=== PATIENT | male | born 1970 | race Caucasian/White ===

== ENCOUNTER → 2017-11-05 | Outpatient (CLI) | payer BC ==
[~2017-11-05] VITALS: Ht 182.9 cm; Wt 134.6 kg
[~2017-11-05] MED LIST: ASCA500 PO; ASPI1TAB83 PO; INSDGI SC; LISI-729 PO; MAGN500T15 PO; METF-384 PO
[2017-11-05 13:38] VITALS: BP 125/87; PULSE 90; Ht 182.9 cm; Wt 134.6 kg
== END | disposition home or self-care (01) ==
LOC: C.NEUR 12:51
PROVIDERS: ATTEND Internal Medicine Pulmonary Disease
DX: R06.83 Snoring (principal); R06.81 Apnea, not elsewhere classified; R53.81 Other malaise; R53.83 Other fatigue

== ENCOUNTER → 2017-11-18 | Outpatient (CLI) | payer BC ==
--- NOTE | 2017-11-19 04:12 | SPLIT NIGHT TECHNICIAN REPORT ---
[facility] Split Night Polysomnogram - Water Filterer Report Study date: 11/18/2017 Referring Physician: Jey Gayle M.D. Name: NUSRAT CAZARES Water Filterer: DALE Puentes. Date of : 1970 Height: 47 years, Height 6' 0" Sex: Male Weight: 296 lbs Age: 47 Neck Circum: 20.5 in BMI: Medications: 40.14 ASPIRIN 325 MG, ATORVASTATIN 40 MG, BASAGLAR KWIKPEN 100 UNIT/ML, LISINOPRIL 5 MG, METFORMIN 1000 MG Patient History 47 yr-old male here for a baseline study. He has a history of daytime sleepiness, loud snoring, and witnessed apneas. His Ingalls scale is 8. The test was started on room air. ETCO2 testing was not utilized during this study. Room 1 He requested to get up at 3:30 am for work. Parameters Monitored NPSG: E1-M2, E2-M1, Fp1-M2, Fp2-M1, F3-M2, F4-M2, F4-M1, C3-M2, C4-M2, C4-M1, O1-M2, O2-M2, O2-M1, T3-M2, T4-M1, P3-M2, P4-M1, CHIN1, CHIN2, HR, EKG, Legs, PFLOW, SNOR, FLOW, CFLOW, Tidal Volume, THOR, ABDO, SpO2, PLTH, CPRESS, ETCO2 Wave, ETCO2, pH SLEEP SUMMARY DATA DIAGNOSTIC TREATMENT Lights Out: 8:28:13 PM 10:59:13 PM Lights On: 10:45:13 PM 3:29:13 AM Total Recording Time (TRT): 137.0 min. 270.0 min. Total Sleep Time (TST): 81.5 min. 218.5 min. NREM Time: 81.5 min. 164.5 min. REM Time: 0.0 min. 54.0 min. Sleep Period Time (SPT): 118.5 min. 251.5 min. Sleep Efficiency (SE): 59 % 81 % Sleep Latency: 18.5 min. 18.5 min. Arousal Index: 19.9 11.3 PAP Treatment Levels: 4, 6, 8, 10, 12, 14 * Optimal Pressure(s) SLEEP STAGING DATA DIAGNOSTIC TREATMENT Duration (min) TST % Duration (min) TST % Stage Wake: 55.5 min. -- 51.5 min. -- WASO: 37.0 min. -- 33.0 min. -- NREM: 81.5 min. 100 % 164.5 min. 75 % Stage N1: 32.0 min. 39 % 25.5 min. 12 % Stage N2: 49.5 min. 61 % 124.5 min. 57 % Stage N3: 0.0 min. 0 % 14.5 min. 7 % REM: 0.0 min. 0 % 54.0 min. 25 % POSITIONAL DATA Event Count Index Event Count Index Supine: N/A N/A 43 68.1 Supine NREM: N/A N/A 43 68.1 Supine REM: N/A N/A N/A N/A Non-Supine: 139 101.6 67 20.8 Non-Supine NREM: 139 101.6 63 28.7 Non-Supine REM: N/A N/A 4 2.2 AROUSAL SUMMARY DATA: Event Count Index Event Count Index Apnea Arousals: 9 28.0 4 7.7 Hypopnea Arousals: 10 7.4 10 2.7 Snore Arousals: 2 1.5 4 1.1 PLM Arousals: 3 2.2 8 2.2 Non-Specific Arousals: 3 2.2 9 2.5 Total Arousals: 27 19.9 41 11.3 MYOCLONUS (PLM) Event Count Index Event Count Index PLM: 23 16.9 302 82.9 PLM AROUSAL: 3 2.2 8 2.2 PLM W/O AROUSAL 23 16.9 294 80.7 PLM W/RESP EVENT 5 0.0 27 0.0 MYOCLONUS (PLM) Event Count Index Event Count Index LM: 1 67.0 54 14.8 LM AROUSAL: 1 0.7 1 0.3 LM W/O AROUSAL LM W/RESP EVENT LM NON SPECIFIC 51 37.5 297 81.6 HEART RATE DATA DIAGNOSTIC TREATMENT Sleep (bpm): 85 74 REM (bpm): N/A 95 NREM (bpm): 92 93 Tachycardia Count: 0 0 Tachycardia Duration: 0.00 0 Bradycardia Count: 0 0 Bradycardia Duration: 0.00 0 DIAGNOSTIC PORTION TREATMENT PORTION RESPIRATORY DATA Event Count Index Event Count Index AHI: -- 101.6 -- 28.8 RDI: -- 102.3 -- 30 Obstructive Apnea: 37 27.2 0 0.0 Central Apnea: 1 0.7 28 7.7 Mixed Apnea: 0 0.0 0 0.0 Hypopnea: 100 73.6 77 21.1 RERA: 1 0.7 5 1.4 Total Apneas: 38 28.0 28 7.7 RESPIRATORY DATA REM NREM SLEEP REM NREM SLEEP Supine Position: Obstructive Apneas: N/A N/A N/A N/A 0 0 Central Apneas: N/A N/A N/A N/A 25 25 Mixed Apneas: N/A N/A N/A N/A 0 0 Hypopneas: N/A N/A N/A N/A 17 17 RERA N/A N/A N/A N/A 1 1 Total Supine Events: N/A N/A N/A N/A 43 43 Supine AHI: N/A N/A N/A N/A 68.1 68.1 Supine RDI: N/A N/A N/A N/A 69.7 69.7 REM NREM SLEEP REM NREM SLEEP Non-Supine Position: Obstructive Apneas: N/A 37 37 0 0 0 Central Apneas: N/A 1 1 2 1 3 Mixed Apneas: N/A 0 0 0 0 0 Hypopneas: N/A 100 100 0 60 60 RERA N/A 1 1 2 2 4 Total Supine Events: N/A 139 139 4 63 67 Supine AHI: N/A 101.6 101.6 2.2 28.7 20.8 Supine RDI: N/A 102.3 102.3 4.4 29.6 22.1 OXYGEN DESTAURATION DATA: Event Count Index Event Count Index REM Desaturations: N/A N/A 4 4.4 NREM Desaturations: 149 109.7 115 41.9 SNORE DATA DIAGNOSTIC TREATMENT Snore Time: 17.6 11:17:43 PM Snore TST%: 9 14 Snore Arousal Count: 2 4 Snore Arousal Index: 1.5 1.1 Desaturation Event Summary: Minimum %SpO2 Event Count Mean/Min/Max Duration(sec.) Desaturation Index % Time In Bed > 90 335 17.2 / 5.3 / 60.0 58.8 84.0 86 - 90 9 12.9 / 8.0 / 16.0 8.8 15.2 81 - 85 0 N/A 0.0 0.8 76 - 80 0 N/A 0.0 0.0 71 - 75 0 N/A 0.0 0.0 66 - 70 0 N/A 0.0 0.0 61 - 65 0 N/A 0.0 0.0 56 - 60 0 N/A 0.0 0.0 51 - 55 0 N/A 0.0 0.0 < 50 0 N/A 0.0 0.0 OXYGEN SATURATION DATA DIAGNOSTIC TREATMENT SpO2 Mean Sleep: 92 % 93 % SpO2 Mean REM: N/A % 95 % SpO2 Mean NREM: 92 % 93 % SpO2 Minimum Sleep: 82 % 84 % SpO2 Minimum REM: N/A % 90 % SpO2 Minimum NREM: 82 % 84 % Time Below 90% (TST): 21.2 7.0 Time Below 88% (TST): 7.3 1.1 Total REM NREM Awake <50% 0.0 min. 0.0 min. 0.0 min. 0.0 min. 51 - 60% 0.0 min. 0.0 min. 0.0 min. 0.0 min. 61 - 70% 0.0 min. 0.0 min. 0.0 min. 0.0 min. 71 - 80% 0.0 min. 0.0 min. 0.0 min. 0.0 min. 81 - 90% 64.9 min. 0.3 min. 45.0 min. 19.6 min. 91 - 100% 341.9 min. 53.7 min. 201.0 min. 87.2 min. Average 93 95 92 93 Minimum SpO2 82 90 82 82 Desaturation Event Index 49.4 4.4 64.4 38.7 # Desat. Events below 89% 137 N/A 121 16 Time(%) with Saturation below 89% 4.5 0.0 3.8 0.7 Time(min.) with Saturation below 89% 18.3 0.0 15.6 2.7 Recording Water Filterer Comments: Mr. Cazares slept in the right, left, and supine positions. No cardiac arrhythmias were noted. PLMs were noted when respiratory events were at a minimum. No bruxism noted. Snoring was noted and scored as a 3-4 on a scale of 1 through 5. (0=no snoring, 5=snoring loud enough to be heard through a closed door or down the [place] way) At 10:56 pm, he met specific Split-Night criteria during the diagnostic portion of this study. CPAP was initiated at +4 CMH2O and up-titrated to a level of +14 CMH2O, Cflex 2. He did have some central apneas; however, they mostly seemed to occur in stage one sleep after arousals. A Simplus full face mask size medium from [employer] was used during titration. He did not wake up to use the restroom during the night. Mr. Cazares stated that he slept a little better than usual. He requested to get up at 3:30 am for work. The final report will be interpreted and signed by a sleep physician. The completed physician report will then be placed in the patient medical record. Therapy Event: Therapy (cm H20) 0 4 6 8 10 12 14 Total Time at Pressure (min.) 137.0 36.1 16.2 21.4 61.2 62.6 72.5 TST at Pressure (min.) 81.5 8.1 16.2 21.4 45.2 61.6 66.0 # Periods 1 1 1 1 1 1 1 Sleep Onset (min.) 18.5 18.5 0.0 0.0 0.0 0.0 0.0 REM Onset (min.) N/A N/A N/A N/A 6.8 46.6 35.0 Sleep Efficiency % 59 22 100 100 73 98 91 Wakefulness (%) 40.5 77.5 0.0 0.0 26.1 1.6 9.0 Wakefulness (min.) 55.5 28.0 0.0 0.0 16.0 1.0 6.5 NREM 1 (%) 23.4 22.5 11.6 0.0 11.4 7.2 5.5 NREM 1 (min.) 32.0 8.1 1.9 0.0 7.0 4.5 4.0 NREM 2 (%) 36.1 0.0 88.4 55.6 28.9 74.4 46.9 NREM 2 (min.) 49.5 0.0 14.3 11.9 17.7 46.6 34.0 NREM 3 (%) 0.0 0.0 0.0 44.4 0.0 4.8 2.8 NREM 3 (min.) 0.0 0.0 0.0 9.5 0.0 3.0 2.0 REM (%) 0.0 0.0 0.0 0.0 33.5 12.0 35.9 REM (min.) 0.0 0.0 0.0 0.0 20.5 7.5 26.0 # Arousals 27 8 4 0 14 9 6 Arousal Index 19.9 59.2 14.8 0.0 18.6 8.8 5.5 # Snore 564 34 194 252 225 97 42 Snore Index 415.2 251.4 717.6 706.7 298.6 94.5 38.2 AHI 101.6 66.6 85.1 33.7 37.2 15.6 15.5 AHI Supine N/A N/A N/A N/A 102.9 79.9 44.2 AHI Non-Supine 101.6 66.6 85.1 33.7 17.3 6.7 3.8 NREM AHI 101.6 66.6 85.1 33.7 68.0 17.8 22.5 REM AHI N/A N/A N/A N/A 0.0 0.0 4.6 RDI 102.3 74.0 85.1 36.5 39.8 16.6 15.5 # Obstructive 37 0 0 0 0 0 0 # Central Ap 1 0 0 0 11 5 12 # Mixed 0 0 0 0 0 0 0 # Hypopneas 100 9 23 12 17 11 5 RERAS 1 1 0 1 2 1 0 Total Respiratory Events 139 10 23 13 30 17 17 Time Below SpO2 89.00% (min.) 12.9 0.1 0.0 0.0 2.5 0.1 0.0 Mean NREM SpO2 (%) 92 92 93 94 92 92 94 Mean REM SpO2 (%) N/A N/A N/A N/A 95 93 96 Mean Sleep SpO2 (%) 92 92 93 94 93 92 95 Min NREM SpO2 (%) 82 88 88 91 84 88 91 Min REM SpO2 (%) N/A N/A N/A N/A 92 90 92 Position Supine (min.) 0.0 0.0 0.0 0.0 10.5 7.5 19.0 Position Non-supine (min.) 81.5 8.1 16.2 21.4 34.7 54.1 47.0 LM Index Sleep 83.9 125.7 155.3 140.2 74.3 145.2 38.2 LM Index NREM 83.9 125.7 155.3 140.2 68.0 152.1 33.0 LM Index REM N/A N/A N/A N/A 82.0 96.0 46.2 Mean Heart Rate (bpm) 85 81 78 77 77 71 71 Min Heart Rate (bpm) 72 74 70 69 66 61 59 CPAP REPORT Therapy Detail Time / Page # Comment CPAP 4 cm H2O Full Face Mask Flex Pressure Relief Humidifier on 10:56:28 PM / pg. 355 HE HAD A TOTAL RECORDING TIME OF OVER 2 HOURS AND HIS AHI WAS ABOVE 40 CPAP 6 cm H2O Full Face Mask Flex Pressure Relief Humidifier on 11:35:20 PM / pg. 433 INCREASED FOR HYPOPNEAS CPAP 8 cm H2O Full Face Mask Flex Pressure Relief Humidifier on 11:51:33 PM / pg. 465 INCREASED FOR HYPOPNEAS CPAP 10 cm H2O Full Face Mask Flex Pressure Relief Humidifier on 12:12:57 AM / pg. 508 INCREASED FOR MORE HYPOPNEAS CPAP 12 cm H2O Full Face Mask Flex Pressure Relief Humidifier on 1:14:10 AM / pg. 630 INCREASED FOR HYPOPNEAS AND RERAS CPAP 14 cm H2O Full Face Mask Flex Pressure Relief Humidifier on 2:16:43 AM / pg. 756 INCREASED FOR HYPOPNEAS WHILE SUPINE
--- NOTE | 2017-11-20 16:56 | POLYSOMNOGRAPH REPORT ---
CLINICAL DATA: A 47-year-old male with BMI of 40.14 referred by myself and Dr. Villalobos for evaluation of sleep apnea with loud snoring, daytime sleepiness and witnessed apneic episodes. This was a split night study. SLEEP ARCHITECTURE: For the diagnostic portion of the study, sleep period time was 118.5 minutes. Total sleep time was 81.5 minutes, all non-REM sleep. Sleep efficiency was 59%. Sleep latency was 18.5 minutes. Sleep consisted of stage N1 39% and stage N2 61%. For the treatment portion of the study, sleep period time was 251.5 minutes. Total sleep time was 218.5 minutes divided between 164.5 minutes of non-REM sleep and 54 minutes of REM sleep. Sleep latency was 18.5 minutes. Sleep efficiency was 81%. Sleep consisted of stage N1 12%, stage N2 57%, stage N3 7%, and REM 25%. AROUSAL DATA: Prior to treatment, 27 arousals were recorded for an index of 19.9 per hour. During treatment, 41 arousals were recorded for an index of 11.3 per hour. PLM DATA: Prior to treatment, 51 limb movements were noted for an index of 37.5 per hour. During treatment, 297 limb movements were noted for an index of 81.5 per hour. RESPIRATORY DATA: Very severe sleep apnea was seen prior to treatment with an AHI of 101.6. There were 37 obstructive and 1 central apneic episode. There were 100 hypopneic episodes. The average AHI during treatment was 28.8. There were 28 central apneic episodes and 77 hypopneic episodes. OXIMETRY DATA: Nocturnal hypoxemia was seen prior to treatment. Oxygen john was 82% prior to treatment during non-REM sleep. Mean saturation with treatment was 93%. EKG: Heart rates ranged from 74-95 beats per minute. No arrhythmias were noted. DIRECTOR OF ONCOLOGY'S COMMENTS AND TREATMENT SUMMARY: The patient slept in the right, left, and supine position. PLMs were noted even when respiratory events were at a minimum. Snoring was severe, rated 4 on a scale of 1-5. At 10:56 p.m., he met split night criteria. He used a medium Simplus full face mask from [employer]. He was titrated on CPAP up to 14 cm of water pressure. At his final pressure setting, he slept for 66 minutes with an AHI of 15. He did develop treatment onset central apneas. He did request to leave by 3:30AM in the morning so he could get to work. IMPRESSION: Very severe sleep apnea/hypopnea with diagnostic AHI of 101.6 with nocturnal hypoxemia improved with CPAP 14 cm of water pressure, C-flex 2 using a Simplus full face mask size medium from [employer] with correction of his nocturnal hypoxemia and significant improvement in his sleep apnea. RECOMMENDATIONS: The patient should be started on the above noted treatment regimen and seen back in followup within 90 days to document efficacy and compliance. GABI
== END | disposition home or self-care (01) ==
LOC: C.NEUR 20:00
PROVIDERS: ATTEND Internal Medicine Pulmonary Disease
DX: G47.33 Obstructive sleep apnea (adult) (pediatric) (principal)